=== PATIENT | male | born 1960 | race Caucasian/White ===

== ENCOUNTER 2024-07-09 16:41 | Emergency (ER) | payer MEDICARE, SELFPAY ==
--- NOTE | ~2024-07-09 | XR_ITS ---
CHEST RADIOGRAPH CLINICAL HISTORY: AMS . COMPARISON: 02/19/2018 TECHNIQUE: Single portable view of the chest. FINDINGS The cardiomediastinal silhouette is unremarkable. Coarse interstitial lung markings, unchanged from 2018, chronic in appearance. The lungs are otherwise clear. IMPRESSION: No focal infiltrate or effusion. Reviewed, dictated and finalized at location A. VENEER TAPER
--- NOTE | ~2024-07-09 | CT_ITS ---
Clinical Indication: Syncope, hemoptysis CT Scan of the Chest with Contrast: Technique: Contiguous sections were acquired throughout the chest after intravenous administration of 100 cc of Omnipaque 350. Dose reduction technique was used on this scan by utilizing automated expos ure control and iterative reconstruction technique. The dose-length product (DLP) was 317.81 mGy-cm. Findings: There is no evidence of any significant mediastinal, hilar or axillary lymphadenopathy. Small calcifi ed hilar lymph nodes are present in the right side. There is no filling defect in the pulmonary arter ial tree to suggest pulmonary embolus. There is no evidence of aortic dissection or aneurysm. There is no evidence of pleural or pericardial effusion. Biapical pulmonary scarring present. No suspicious pulmonary nodule or other consolidation. Images through the upper abdomen reveal no abnormalities. Impression: No evidence of pulmonary embolus, aortic dissection, or aortic aneurysm. Biapical scarring, otherwise clear lungs. Reviewed, dictated and finalized at [facility]. [employer]ITTER SUPERVISOR Impression: No evidence of pulmonary embolus, aortic dissection, or aortic aneurysm. Biapical scarring, otherwise clear lungs.
--- NOTE | ~2024-07-09 | CT_ITS ---
History: Altered mental status, dizzy, blurry vision PROCEDURE: CT head without contrast. COMPARISON: 02/19/2018 TECHNIQUE: Axial imaging of the head performed from the skull base to the vertex without IV contrast. Sagittal a nd coronal reformations obtained. DLP: 681 mGy-cm FINDINGS: The ventricles are normal in size, shape and position. There is no mass, mass effect or midline shift. There is no abnormal extra-axial fluid collection or intracranial hemorrhage. Air-fluid levels within the bilateral maxillary sinuses. Retention cyst within the left frontal sinus. Remaining paranasal sinuses are unremarkable. The mastoid air cells are well aerated. No acute displaced fractures within the overlying cranium. Impression: No acute intracranial hemorrhage or suspicious mass effect. Inflammatory sinus disease. Reviewed, dictated and finalized at location A. BOXING INSTRUCTOR Impression: No acute intracranial hemorrhage or suspicious mass effect. Inflammatory sinus disease.
[2024-07-09 16:44] VITALS: BP 120/73; PULSE 60; RESP 17; TEMP 36.1; O2SAT 96
--- NOTE | 2024-07-09 16:54 | ECG_ITS ---
Test Date: 2024-07-09 17:10:04 Measurements Intervals [place] Rate: 59 P: 83 CT: 204 QRS: 79 QRSD: 96 T: 72 QT: 463 QTc: 461 Interpretive Statements SINUS BRADYCARDIA BASELINE ARTIFACT- I, II, III, AVR, AVL, AVF, V1-V2 BORDERLINE ECG No previous ECG available for comparison Electronically Signed On 07-09-2024 19:04:39 [employer] FINANCE OFFICER by Matthew Krishnan D.O.
--- NOTE | 2024-07-09 16:55 | ED.DIZZY ---
HPI - Dizziness General Chief Complaint: Dizziness <Angie Dumont PA-C - Last Filed: 07/09/24 16:56> Stated Complaint: dizziness <Angie Dumont PA-C - Last Filed: 07/09/24 16:56> Time Seen by Provider: 07/09/24 23:45 <Angie Dumont PA-C - Last Filed: 07/09/24 16:56> Focused HPI: 64-year-old male presents to emergency department via EMS from home for altered mental status. Per family the patient was resting on the couch for several hours today which is abnormal for him, also had an episode of urinary incontinence which is abnormal for him. States he is not acting like himself. the patient states he just feels sick. He reports some dizziness and nausea but is unable to focalize any other complaints. Denies headache, chest pain or shortness of breath, cough or congestion, diarrhea, abdominal pain. Did have an episode of nausea and vomiting. No fevers. GENERAL: Well-appearing, well-nourished, and in no acute distress. vomit to the from the patient's shirt HEAD: Normocephalic, atraumatic. CHEST: Clear to auscultation. ?No respiratory distress. HEART: Regular rate and rhythm.? NEURO: ?Alert and oriented x3. Moving all extremities spontaneously Patient screened in triage and initial orders placed.? ?Additional care and disposition to be based upon?diagnostic testing and treatment. <Angie Dumont PA-C - Last Filed: 07/09/24 16:56> Focused HPI: 64-year-old male presents to emergency department via EMS from home for possible syncopal episode. The patient remembers cooking chicken and then his family member found him on the ground by the couch. States he was not acting like himself. The patient states he just feels sick. He reports some dizziness and nausea but is unable to focalize any other complaints. Reports he coughed up some blood on the way here. Denies headache, chest pain or shortness of breath, cough or congestion, diarrhea, abdominal pain. Did have an episode of nausea and vomiting. No fevers. GENERAL: Well-appearing, well-nourished, and in no acute distress. vomit to the from the patient's shirt HEAD: Normocephalic, atraumatic. CHEST: Clear to auscultation. ?No respiratory distress. HEART: Regular rate and rhythm.? NEURO: ?Alert and oriented x3. Moving all extremities spontaneously Patient screened in triage and initial orders placed.? ?Additional care and disposition to be based upon?diagnostic testing and treatment. <Mare Aldridge PA-C - Last Filed: 07/10/24 03:17> Related Data Allergies/Adverse Reactions: Allergies Allergy/AdvReac Type Severity Reaction Status Date / Time salicylic acid (From P and S Allergy Hives Verified 07/10/24 00:54 (salicylic acid)) <Angie Dumont PA-C - Last Filed: 07/09/24 16:56> Review of Systems Review of Systems: CONSTITUTIONAL: Denies fever CARDIOVASCULAR: Denies chest pain, or edema. RESPIRATORY: Denies dyspnea. GASTROINTESTINAL: Denies abdominal pain, nausea, vomiting NEUROLOGIC: Denies headache, numbness, or weakness. <Mare Aldridge PA-C - Last Filed: 07/10/24 03:17> All systems reviewed & are unremarkable except as noted in HPI and below <Mare Aldridge PA-C - Last Filed: 07/10/24 03:17> [facility] Past Medical History Medical History: Medical History (Updated 07/10/24 @ 03:02 by Mare Aldridge PA-C) No active medical problems <Anige Dumont PA-C - Last Filed: 07/09/24 16:56> Social History Social History: Social History (Updated 07/10/24 @ 00:35 by Mare Aldridge PA-C) Substance use: never <Angie Dumont PA-C - Last Filed: 07/09/24 16:56> Exam Narrative: GENERAL: Well-appearing, well-nourished, and in no acute distress. HEAD: Normocephalic, atraumatic. EYES: PERRLA and EOMI. ENT: Nares clear, no rhinorrhea or epistaxis. Mucous membranes moist. Oropharynx without tonsillar hypertrophy exudate or other lesions. Bilateral TMs pearly frances non-bulging NECK: Supple. No adenopathy or masses. CHEST: Clear to auscultation. No respiratory distress. No wheezes rales or rhonchi HEART: Regular rate and rhythm. No murmur heard. Normal peripheral pulses. ABDOMEN: Soft, nontender, nondistended, normal active bowel sounds. EXTREMITIES: Normal range of motion. No edema. Strength equal in bilateral upper and lower extremities (5/5) SKIN: Warm, dry, no rash. NEURO: No focal deficits. Alert and oriented x3. CN II-XII grossly intact PSYCH: Normal mood and affect <Mare Aldridge PA-C - Last Filed: 07/10/24 03:17> Course Course Emergency Course: patient and family updated on workup and agree with plan of care <ANTONETTE Callaway Last Filed: 07/10/24 03:17> Vital Signs Vital signs: Vital Signs Temperature 97 F L 07/09/24 16:44 Pulse Rate 60 07/09/24 16:44 Respiratory Rate 17 07/09/24 16:44 Blood Pressure 120/73 07/09/24 16:44 Pulse Oximetry 96 07/09/24 16:44 Oxygen Delivery Room Air 07/09/24 16:44 Temperature 97 F L 07/09/24 16:44 Pulse Rate 70 07/10/24 00:55 Respiratory Rate 15 07/10/24 00:55 Blood Pressure 106/76 07/10/24 00:55 Pulse Oximetry 99 07/10/24 00:55 Oxygen Delivery Room Air 07/09/24 16:44 <Angie Dumont PA-C - Last Filed: 07/09/24 16:56> Vital Signs Temperature 97 F L 07/09/24 16:44 Pulse Rate 60 07/09/24 16:44 Respiratory Rate 17 07/09/24 16:44 Blood Pressure 120/73 07/09/24 16:44 Pulse Oximetry 96 07/09/24 16:44 Oxygen Delivery Room Air 07/09/24 16:44 Temperature 97 F L 07/09/24 16:44 Pulse Rate 70 07/10/24 00:55 Respiratory Rate 15 07/10/24 00:55 Blood Pressure 106/76 07/10/24 00:55 Pulse Oximetry 99 07/10/24 00:55 Oxygen Delivery Room Air 07/09/24 16:44 <ANTONETTE Callaway Last Filed: 07/10/24 03:17> MDM - Dizziness MDM Narrative Medical decision making narrative: Patient presents to the ER for an episode of alteration in awareness. His son found him by the couch reports he was not responding appropriately. Upon arrival to the ER, patient is alert and oriented. Neurologically intact. His vitals are stable. CBC with leukocytosis to 14.6. Hemoglobin is normal. Metabolic panel without concerning findings. EKG without concerning changes and baseline troponin is negative. Urine shows some evidence of dehydration. Drug screen positive for cannabinoids. Influenza, RSV and COVID screens are negative. Alcohol level is negative. CT brain is without acute intracranial abnormality. Shows inflammatory sinus disease. CTA chest PE study obtained due to patient reporting hemoptysis. No evidence for PE or acute cardiopulmonary abnormality. patient and family updated on workup and agree with plan of care. Instructed to have close follow-up with his primary provider. They were given warnings to return to the ER <Mare Aldridge PA-C - Last Filed: 07/10/24 03:17> Differential Diagnosis Differential diagnosis: Likely adverse reaction to drug, benign paroxysmal positional vertigo, orthostatic hypotension and other (dehydration, electrolyte derangement, syncope, PE, infection) <Mare Aldridge PA-C - Last Filed: 07/10/24 03:17> Lab Data Attestation: I reviewed the patient's lab results. <Mare Aldridge PA-C - Last Filed: 07/10/24 03:17> Result diagrams: 07/09/24 17:11 07/09/24 17:11 <Angie Dumont PA-C - Last Filed: 07/09/24 16:56> Labs: Lab Results 07/09/24 07/10/24 07/10/24 Range/Units 17:11 00:54 01:47 WBC 14.6 H (4.5-10.0) K/mm3 RBC 4.33 L (4.6-6.20) M/mm3 Hgb 14.2 (14.0-18.0) g/dL Hct 42.5 (42.0-52.0) % MCV 98.2 (80-100) fl MCH 32.8 (26-34) pg MCHC 33.4 (32-36) g/dl RDW 12.6 (11.5-14.5) % Plt Count 206 (150-375) k/mm3 MPV 9.6 (7.4-10.4) fl Immature Gran % (Auto) Not Reportable Neut % (Auto) Not Reportable Lymph % (Auto) Not Reportable [place] % (Auto) Not Reportable Eos % (Auto) Not Reportable Baso % (Auto) Not Reportable Lymph # (Auto) Not Reportable [place] # (Auto) Not Reportable Eos # (Auto) Not Reportable Baso # (Auto) Not Reportable Abs Immat Gran (auto) Not Reportable Absolute Neuts (auto) Not Reportable Absolute Nucleated RBC Not Reportable Total Counted 100 Neutrophils % (Manual) 62 (46-73) % Band Neutrophils % 1 (0-6) % Lymphocytes % (Manual) 24.0 (18-44) % Monocytes % (Manual) 11 H (3-9) % Eosinophils % (Manual) 2 (0-4) % Nucleated RBC % Not Reportable Abs Neuts (Manual) 9.19 H (1.3-6.7) K/mm3 Abs Lymphs (Manual) 3.50 (1.1-4.5) K/mm3 Abs Monocytes (Manual) 1.60 H (0.1-0.90) K/mm3 Absolute Eos (Manual) 0.29 (0.02-0.50) K/mm3 Platelet Estimate Adequate (Adequate) Clumped Platelets Present % Immature Plt Fraction 2.1 (0.9-11.2) % Schistocytes None seen PT 13.2 (11.1-14.7) Seconds INR 1.0 APTT 20.0 L (22.3-36.8) Seconds Sodium 139 (137-145) mmol/L Potassium 3.6 (3.4-5.0) mmol/L Chloride 103 (98-107) mmol/L Carbon Dioxide 24 (22-30) mmol/L Anion Gap 12 (4-12) mmol/L BUN 18 (9-20) mg/dL Creatinine 0.73 (0.7-1.3) mg/dL Estim Creat Clear Calc 89 ml/min Estimated GFR > 60 (59 - ) Glucose 151 H (65-110) mg/dL Calcium 9.3 (8.4-10.2) mg/dL Total Bilirubin 0.6 (0.2-1.3) mg/dL AST 22 (17-59) U/L ALT 16 (6-50) U/L Alkaline Phosphatase 63 (38-126) U/L Total Creatine Kinase 72 (55-170) U/L Troponin I < 0.012 (0.000-0.034) ng/mL Total Protein 7.0 (6.3-8.2) g/dL Albumin 4.3 (3.5-5.1) g/dL TSH 2.870 (0.465-4.680) uIU/mL Urine Color Yellow (Yellow) Urine Appearance Clear (Clear) Urine pH 5.5 (5.0-9.0) Ur Specific Section 1.036 H (1.001-1.035) Urine Protein Trace (Negative) mg/dL Urine Glucose (UA) Negative (Negative) mg/dL Urine Ketones Trace H (Negative) mg/dL Ur Blood (Man) Negative (Negative) Urine Nitrate Negative (Negative) Urine Bilirubin Negative (Negative) Urine Urobilinogen 0.2 (<2.0) mg/dL Leukocyte Esterase Rfl Negative (Negative) ELIANA/UL Urine RBC 0-2 (0-2) /hpf Urine WBC 0-5 (0-3) /hpf Ur Squamous Epith Cells None seen (Few) /hpf Urine Bacteria None seen /hpf Urine Casts 0-2 Urine Opiates Screen Negative (Negative) Urine Methadone Screen Negative (Negative) Ur Barbiturates Screen Negative (Negative) Ur Phencyclidine Scrn Negative (Negative) Ur Amphetamine Screen Negative (Negative) U Benzodiazepines Scrn Negative (Negative) Urine Cocaine Screen Negative (Negative) U Cannabinoids Screen Positive A (Negative) Ethyl Alcohol < 10 (<10) mg/dL Influenza A (RT-PCR) Negative (Negative) Influenza B (RT-PCR) Negative (Negative) RSV (RT-PCR) Negative (Negative) SARS-CoV-2 RNA (RT-PCR) Negative (Negative) <Angie Dumont PA-C - Last Filed: 07/09/24 16:56> Lab Results 07/09/24 07/10/24 07/10/24 Range/Units 17:11 00:54 01:47 WBC 14.6 H (4.5-10.0) K/mm3 RBC 4.33 L (4.6-6.20) M/mm3 Hgb 14.2 (14.0-18.0) g/dL Hct 42.5 (42.0-52.0) % MCV 98.2 (80-100) fl MCH 32.8 (26-34) pg MCHC 33.4 (32-36) g/dl RDW 12.6 (11.5-14.5) % Plt Count 206 (150-375) k/mm3 MPV 9.6 (7.4-10.4) fl Immature Gran % (Auto) Not Reportable Neut % (Auto) Not Reportable Lymph % (Auto) Not Reportable [place] % (Auto) Not Reportable Eos % (Auto) Not Reportable Baso % (Auto) Not Reportable Lymph # (Auto) Not Reportable [place] # (Auto) Not Reportable Eos # (Auto) Not Reportable Baso # (Auto) Not Reportable Abs Immat Gran (auto) Not Reportable Absolute Neuts (auto) Not Reportable Absolute Nucleated RBC Not Reportable Total Counted 100 Neutrophils % (Manual) 62 (46-73) % Band Neutrophils % 1 (0-6) % Lymphocytes % (Manual) 24.0 (18-44) % Monocytes % (Manual) 11 H (3-9) % Eosinophils % (Manual) 2 (0-4) % Nucleated RBC % Not Reportable Abs Neuts (Manual) 9.19 H (1.3-6.7) K/mm3 Abs Lymphs (Manual) 3.50 (1.1-4.5) K/mm3 Abs Monocytes (Manual) 1.60 H (0.1-0.90) K/mm3 Absolute Eos (Manual) 0.29 (0.02-0.50) K/mm3 Platelet Estimate Adequate (Adequate) Clumped Platelets Present % Immature Plt Fraction 2.1 (0.9-11.2) % Schistocytes None seen PT 13.2 (11.1-14.7) Seconds INR 1.0 APTT 20.0 L (22.3-36.8) Seconds Sodium 139 (137-145) mmol/L Potassium 3.6 (3.4-5.0) mmol/L Chloride 103 (98-107) mmol/L Carbon Dioxide 24 (22-30) mmol/L Anion Gap 12 (4-12) mmol/L BUN 18 (9-20) mg/dL Creatinine 0.73 (0.7-1.3) mg/dL Estim Creat Clear Calc 89 ml/min Estimated GFR > 60 (59 - ) Glucose 151 H (65-110) mg/dL Calcium 9.3 (8.4-10.2) mg/dL Total Bilirubin 0.6 (0.2-1.3) mg/dL AST 22 (17-59) U/L ALT 16 (6-50) U/L Alkaline Phosphatase 63 (38-126) U/L Total Creatine Kinase 72 (55-170) U/L Troponin I < 0.012 (0.000-0.034) ng/mL Total Protein 7.0 (6.3-8.2) g/dL Albumin 4.3 (3.5-5.1) g/dL TSH 2.870 (0.465-4.680) uIU/mL Urine Color Yellow (Yellow) Urine Appearance Clear (Clear) Urine pH 5.5 (5.0-9.0) Ur Specific Section 1.036 H (1.001-1.035) Urine Protein Trace (Negative) mg/dL Urine Glucose (UA) Negative (Negative) mg/dL Urine Ketones Trace H (Negative) mg/dL Ur Blood (Man) Negative (Negative) Urine Nitrate Negative (Negative) Urine Bilirubin Negative (Negative) Urine Urobilinogen 0.2 (<2.0) mg/dL Leukocyte Esterase Rfl Negative (Negative) ELIANA/UL Urine RBC 0-2 (0-2) /hpf Urine WBC 0-5 (0-3) /hpf Ur Squamous Epith Cells None seen (Few) /hpf Urine Bacteria None seen /hpf Urine Casts 0-2 Urine Opiates Screen Negative (Negative) Urine Methadone Screen Negative (Negative) Ur Barbiturates Screen Negative (Negative) Ur Phencyclidine Scrn Negative (Negative) Ur Amphetamine Screen Negative (Negative) U Benzodiazepines Scrn Negative (Negative) Urine Cocaine Screen Negative (Negative) U Cannabinoids Screen Positive A (Negative) Ethyl Alcohol < 10 (<10) mg/dL Influenza A (RT-PCR) Negative (Negative) Influenza B (RT-PCR) Negative (Negative) RSV (RT-PCR) Negative (Negative) SARS-CoV-2 RNA (RT-PCR) Negative (Negative) <Mare Aldridge PA-C - Last Filed: 07/10/24 03:17> Imaging Data Radiologist's impression: ITS Impressions Chest X-Ray 07/09/24 17:06 IMPRESSION: No focal infiltrate or effusion. Head CT 07/09/24 17:31 Impression: No acute intracranial hemorrhage or suspicious mass effect. Inflammatory sinus disease. CTA chest PE: No acute pulmonary embolism <Mare Aldridge PA-C - Last Filed: 07/10/24 03:17> ECG Data EKG #1: ECG completion date: 07/10/24 <ANTONETTE Callaway Last Filed: 07/10/24 03:17> EKG Interpretation: bradycardia, sinus rhythm, no ST changes and normal QT <ANTONETTE Callaway Last Filed: 07/10/24 03:17> Critical Care Time Critical Care Time Critical Care Time: No <ANTONETTE Callaway Last Filed: 07/10/24 03:17> Discharge Plan Discharge Clinical Impression: Altered awareness, transient Acute sinusitis Qualifiers: Sinusitis location: maxillary Recurrence: not specified as recurrent Qualified Code(s): J01.00 - Acute maxillary sinusitis, unspecified <ANTONETTE Pope Last Filed: 07/09/24 16:56> Patient Disposition: Home, Self-Care <ANTONETTE Pope Last Filed: 07/09/24 16:56> Condition: Improved <ANTONETTE Pope Last Filed: 07/09/24 16:56> Instructions: Antibiotic Form, Sinusitis (ED), Lightheadedness (ED) <ANTONETTE Pope Last Filed: 07/09/24 16:56> Additional Instructions: Return to the emergency department if you experience fever, chest pain, shortness of breath, abdominal pain with nausea and vomiting, weakness, numbness/tingling, or any other symptoms that are concerning to you. Take oral antibiotic as prescribed Follow up with your primary care doctor <ANTONETTE Pope Last Filed: 07/09/24 16:56> Patient Language: Serbian <Angie Dumont PA-C - Last Filed: 07/09/24 16:56> Prescriptions: New cefpodoxime 100 mg/5 mL suspension for reconstitution 100 mg PO BID 7 Days Qty: 70 0RF <Angie Dumont PA-C - Last Filed: 07/09/24 16:56> Follow-up/Referrals: PHYSICIAN NOT ON STAFF,NONSTAFF [Non-Staff] - <Angie Dumont PA-C - Last Filed: 07/09/24 16:56>
[2024-07-09 17:27] LABS: Hematocrit 42.5 % (42.0-52.0); Hemoglobin 14.2 g/dL (14.0-18.0); Immature Platelet Fraction Pct 2.1 % (0.9-11.2); Mean Corpuscular HGB Conc 33.4 g/dl (32-36); Mean Corpuscular Hemoglobin 32.8 pg (26-34); Mean Corpuscular Volume 98.2 fl (80-100); Mean Platelet Volume 9.6 fl (7.4-10.4); Platelet Count Result 206 k/mm3 (150-375); Red Blood Count 4.33 M/mm3 (4.6-6.20); Red Cell Distribution Width 12.6 % (11.5-14.5); White Blood Count 14.6 K/mm3 (4.5-10.0)
[2024-07-09 17:42] LABS: Prothrombin Time 13.2 Seconds (11.1-14.7)
[2024-07-09 17:55] LABS: Alanine Aminotransferase 16 U/L (6-50); Albumin Level 4.3 g/dL (3.5-5.1); Alkaline Phosphatase 63 U/L (38-126); Anion Gap 12 mmol/L (4-12); Aspartate Amino Transferase 22 U/L (17-59); Bilirubin,Total 0.6 mg/dL (0.2-1.3); Blood Urea Nitrogen 18 mg/dL (9-20); Calcium 9.3 mg/dL (8.4-10.2); Carbon Dioxide 24 mmol/L (22-30); Chloride 103 mmol/L (98-107); Creatine Kinase 72 U/L (55-170); Estimated CRCL calculation 89 ml/min; Estimated Glomerular Filt Rate > 60; Glucose 151 mg/dL (65-110); Potassium 3.6 mmol/L (3.4-5.0); Sodium 139 mmol/L (137-145)
[2024-07-09 17:59] LABS: Band Neutrophils Percent 1 % (0-6); Eosinophils Absolute Manual 0.29 K/mm3 (0.02-0.50); Eosinophils Percent Manual 2 % (0-4); Monocytes Percent Manual 11 % (3-9); Neutrophils Absolute Manual 9.19 K/mm3 (1.3-6.7); Neutrophils Percent Manual 62 % (46-73); Platelet Clumps Present; Platelet Estimate Adequate (Adequate); Schistocytes None Seen; Total Cells Counted 100
[2024-07-09 18:03] LABS: Influenza A QL RT-PCR Negative (Negative); Influenza B QL RT-PCR Negative (Negative); RSV RNA, RT-PCR Negative (Negative); SARS-CoV-2 RNA PCR Negative (Negative)
[2024-07-09 18:29] LABS: Troponin I < 0.012 ng/mL (0.000-0.034)
--- OUTSIDE RECORDS SUMMARY | 2024-07-10 00:11 | XMS_ITS | Clinical Summary ---
Author Organization [facility] Address [address], [address] [address] Phone Care Team Providers Care Superannuation Funds Manager Name Role Phone Kingston Montes De Oca DO Primary Care Provider [phone] Social History Tobacco Use Types Packs/Day Years Used Date Smoking Tobacco: Never Assessed Sex and Gender Information Value Date Recorded Sex Assigned at Not on file Legal Sex Male 10:54 PM CDT Gender Identity Not on file Sexual Orientation Not on file Plan of Treatment Health Maintenance Due Date Last Done Comments Hepatitis C Virus (HCV) Screening 1960 TdaP Immunization 1960 Cologuard 2009 Immunochemical Fecal Occult Blood 2009 Pneumococcal Immunization (5 0+ years) (1 of 1 - PCV) 2009 Zoster Immunization (1 of 2) 2009 PSA Discussion 2014 Influenza Immunization (#1) 2024 SARS-COV-2 Immunization ( - season) 2024 Colonoscopy 04/27/2028 04/27/2018 Colorectal Cancer Screening 04/27/2028 Respiratory Syncytial Virus (RSV) Immunization (Adult) (1 - 1-dose 75+ series) 2034 04/27/2018 Hepatitis B Immunization Aged Out No longer eligible based on patient's age to complete this topic Meningococcal Immunization (ACWY) Aged Out No longer eligible based on patient's age to complete this topic Pneumococcal Immunization Combined Aged Out No longer eligible based on patient's age to complete this topic Rotavirus Immunization Aged Out No lo nger eligible based on patient's age to complete this topic Procedures Procedure Name Priority Date/Time Associated Diagnosis Comments COLONOSCOPY Routine 04/27/2018 from Last 3 Months or Most Recently Relevant to Health Maintenance Results * COLONOSCOPY (04/27/2018) Kingston Montes De Oca DO PROCEDURE/MINOR SURGICAL OR DERABLES Final Result from Last 3 Months or Most Recently Relevant to Health Maintenance Insurance MEDICARE [facility] Care Teams Superannuation Funds Manager Relationship Specialty Start Date End Date Kingston Montes De Oca DO [address] [place] [address] PCP - General Internal Medicine 07/18/17
--- OUTSIDE RECORDS SUMMARY | 2024-07-10 00:11 | XMS_ITS | Referral Summary ---
Author Organization [facility] Address [address] [place] [id number] Care Team Providers Care Tearer Name Role Phone Kingston Montes De Oca MD Primary Care Provider [phone] Kingston Montes De Oca MD Unavailable [phone] Allergies Active Allergy Reactions Criticality Noted Date Comments Morphine Nausea only Low 02/20/2018 Penicillins Anaphylaxis High 02/20/2018 Medications aspirin 325 mg EC tabletIndication s:Deep Vein Thrombosis Prevention Take 1 tablet (325 mg total) by mouth 2 (two) times a day for 14 days. 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 02/20/2018 Chronic low back pain 02/20/2018 Acute pain due to trauma 02/20/2018 Social History Tobacco Use Types Packs/Day Years Used Date Smoking Tobacco: Former Cigarettes 0.5 10 1 - 02/21/1988 Smokeless Tobacco: Never Tobacco Cessation:Counseling Given: Yes Comments:Pt has quit for 30 yrs Alcohol Use Standard Drinks/Week Comments No 0 (1 standard drink = 0.6 oz pur e alcohol) Sex and Gender Information Value Date Recorded Sex Assigned at Not on file Legal Sex Male 9:25 AM CDT Gender Identity Not on file Sexual Orientation Not on file 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 Not on file Not on fi le Last Filed Vital Signs Vital Sign Reading Time Taken Comments Blood Pressure 139/79 02/22/2018 4:40 PM CDT Pulse 93 02/22/2018 4:40 PM CDT Temperature 37.3 C (99.1 F) 02/22/2018 4:40 PM CDT Respiratory Rate 16 02/22/2018 4:40 PM CDT Oxygen Saturation 99% 02/22/2018 4:40 PM CDT Inhaled Oxygen Concentration - - Weight 69.9 kg (154 lb) 09/19/2018 11:03 AM CDT Height 198.1 cm (6' 6 ) 09/19/2018 11:03 AM CDT Body Mass Index 17.8 09/19/2018 11:03 AM CDT Plan of Treatment Not on file Medical Devices Implanted Type Area Propagation Manager Device Identifier Shelf Expiration Date Model / Serial / Lot [employer] [id number] Trilogy 6.5mm 35mm Self Tap Screw Bone - S0 - [id number] Implanted:Qty: 1 on 02/20/2018 by Hood Ramos MD at [facility] Screw Left: Hip [employer] [id number] 10/14/2027 [id number] / 0 / [id number] [employer] [id number] Trilogy 6.5mm 30mm Self Tap Acetabular Cortical Screw Bone - [id number] Implanted:Qty: 1 on 02/20/2018 by Hood Ramos MD at [facility] Screw Left: Hip [employer] [id number] 01/14/2028 [id number] / / [id number] [employer] [id number] 58mm Limit Hole Color Coded Hip G Hemisphere Offset Shell - S0 - [id number] Implanted:Qty: 1 on 02/20/2018 by Hood Ramos MD at [facility] Left: Hip [employer] [id number] 12/20/2027 [id number] / 0 / [id number] [employer] [id number] Cable-Ready 1.8mm 635cm Cerclage Crimp Trochanter Cable - S0 - [id number] Implanted:Qty: 1 on 02/20/2018 by Hood Ramos MD at [facility] Left: Hip [employer] [id number] 12/14/2027 [id number] / 0 / [id number] [employer] [id number] Almazan Sl Revision 21mm 225mm Distal Fill Hip 135d 12/14 Stem - S0 - [id number] Implanted:Qty: 1 on 02/20/2018 by Hood Ramos MD at [facility] Left: Hip [employer] [id number] 04/14/2018 [id number] / 0 / [id number] [employer] [id number] Trilogy 6.5mm 20mm Self Tap Screw Bone - [id number] Implanted:Qty: 1 on 02/20/2018 by Hood Ramos MD at [facility] Left: Hip [employer] [id number] 10/14/2027 [id number] / / [id number] Acetabular Liner Implanted:Qty: 1 on 02/20/2018 by Hood Ramos MD at [facility] Left: Hip [employer] [id number] 10/16/2022 / / [id number] [employer] [id number] Versys Legacy 36mm Hip +10.5mm 12/14 Head Femoral Zimaloy Sterile - [id number] Implanted:Qty: 1 on 02/21/2018 by Hood Ramos MD at [facility] Left: Hip [employer] [id number] 12/14/2027 [id number] / / [id number] [place] [address] [facility] ACCESS Member Subscriber Plan / Payer (Ef fective 2011-Present) Name:Marcin Patino Relation to Subscriber:Spouse Name:ROOSEVELT CRANE Date of :1899 (Home) Address: [address] [place] [address] Payer ID:[id number] (NAIC) Type: ALLIANCE Address: [address] [place] [id number] MEDICARE MEDICARE [facility] ACCESS Member Subscriber Plan / Payer (Ef fective 2011-Present) Name:Marcin Patino Relation to Subscriber:Spouse Name:ROOSEVELT PATINO Subscriber ID:Not on file Date of :1962 (Home) Address: [address] [place] [address] Payer ID:[id number] (NAIC) Type:BC ALLIANCE Address: [address] [place] [id number] Advance Directives For more information, please contact: [phone] * Full Code (Latest Code Status on File) Date Activated Date Inactivated Comments 02/20/2018 3:46 PM 02/22/2018 9:55 PM Care Teams Tearer Relationship Specialty Start Date End Date Kingston Montes De Oca MD [address] [facility] [address] [place] [address] PCP - General 02/20/18 Kingston Montes De Oca MD [address] [place] [address] Internal Medicine 02/19/18
--- OUTSIDE RECORDS SUMMARY | 2024-07-10 00:11 | XMS_ITS | Clinical Summary ---
Author Organization [facility] Address [address] [place] [address] Care Team Providers Care Book Store Associate Name Role Phone Kingston Montes De Oca MD Primary Care Provider [phone] Kingston Montes De Oca MD Unavailable [phone] Allergies Active Allergy Reactions Criticality Noted Date [...] 02/20/2018 Acute pain due to trauma 02/20/2018 Surgical History Surgery Date Site/Laterality Comments NEUROPLASTY / TRANSPOSITION MEDIAN NERVE AT CARPAL TUNNEL BILATERAL GANGLION CYST EXCISION HIP SURGERY 03/02/[address] 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 Lumbago TBI (traumatic brain injury) ([facility]) 2010 DDD (degenerative disc disease), cervical Family History Medical History Relation Name Comments Cancer Father Diabetes Mother Stroke Mother Heart disease Son Relation Name Status Comments Father Mother Son Social History Tobacco Use Types Packs/Day Years [...] 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 on file Not on fi le Obstetrics History Last Filed Vital Signs Vital Sign Reading [...] on file Medical Devices Implanted Type Area Cop Winder Device Identifier Shelf Expiration Date Model / Serial / Lot [employer] [id number] Trilogy 6.5mm 35mm Self Tap Screw Bone - S0 - [id number] Implanted:Qty: 1 on 02/20/2018 by Hood Long MD at [facility] Screw Left: Hip [employer] [id number] 10/14/2027 [id number] / 0 / [id number] [employer] [id number] Trilogy 6.5mm 30mm Self Tap Acetabular Cortical Screw Bone - [id number] Implanted:Qty: 1 on 02/20/2018 by Hood Long MD at [facility] Screw Left: Hip [employer] [id number] 01/14/2028 [id number] / / [id number] [employer] [id number] 58mm Limit Hole Color Coded Hip G Hemisphere Offset Shell - S0 - [id number] Implanted:Qty: 1 on 02/20/2018 by Hood Long MD at [facility] Left: Hip [employer] [id number] 12/20/2027 [id number] / 0 / [id number] [employer] [id number] Cable-Ready 1.8mm 635cm Cerclage Crimp Trochanter Cable - S0 - [id number] Implanted:Qty: 1 on 02/20/2018 by Hood Long MD at [facility] Left: Hip [employer] [id number] 12/14/2027 [id number] / 0 / [id number] [employer] [id number] Almazan Sl Revision 21mm 225mm Distal Fill Hip 135d 12/14 Stem - S0 - [id number] Implanted:Qty: 1 on 02/20/2018 by Hood Long MD at [facility] Left: Hip [employer] [id number] 04/14/2018 [id number] / 0 / [id number] [employer] [id number] Trilogy 6.5mm 20mm Self Tap Screw Bone - [id number] Implanted:Qty: 1 on 02/20/2018 by Hood Long MD at [facility] Left: Hip [employer] [id number] 10/14/2027 [id number] / / [id number] Acetabular Liner Implanted:Qty: 1 on 02/20/2018 by Hood Long MD at [facility] Left: Hip [employer] [id number] 10/16/2022 / / [id number] [employer] [id number] Versys Legacy 36mm Hip +10.5mm 12/14 Head Femoral Zimaloy Sterile - [id number] Implanted:Qty: 1 on 02/21/2018 by Hood Long MD at [facility] Left: Hip [employer] [id number] 12/14/2027 [id number] / / [id number] Insurance [facility] MEDICARE MEDICARE [facility] ACCESS Advance Directives For more information, please contact: [phone] * Full Code (Latest Code Status on File) Date Activated Date Inactivated Comments 02/20/2018 3:46 PM 02/22/2018 9:55 PM Care Teams Book Store Associate Relationship Specialty Start Date End Date Kingston Montes De Oca MD [address] [facility] [address] [place] [address] PCP - General 02/20/18 Kingston Montes De Oca MD [address] [facility] [address] [place] [address] Internal Medicine 02/19/18
[2024-07-10] MEDS: SODIUM CHLORIDE 0.9% IV 1,000 ML 999 ML IV CONT (00:53)
[2024-07-10 00:55] VITALS: BP 106/76; PULSE 70; RESP 15; O2SAT 99
[2024-07-10 01:18] LABS: Ethanol < 10 mg/dL (<10)
[2024-07-10 02:02] LABS: Add Urine Microscopic? YES; Appearance Urine Clear (Clear); Bacteria Urine None Seen /hpf; Bilirubin Urine Negative (Negative); Blood Urine Negative (Negative); Color Urine Yellow (Yellow); Glucose Urine UA Negative (Negative); Ketones Urine Trace mg/dL (Negative); Leukocyte Esterase Ur Negative LEU/UL (Negative); Nitrate Urine Negative (Negative); Non Pathogenic Casts 0-2; Protein Urine Trace mg/dL (Negative); RBC Urine 0-2 /hpf (0-2); Specific Grav Ur 1.036 (1.001-1.035); Squamous Epithelial Cell Urine None Seen /hpf (Few); Urobilinogen Urine 0.2 mg/dL (<2.0); WBC Urine 0-5 /hpf (0-3); pH Urine 5.5 (5.0-9.0)
[2024-07-10 02:13] LABS: Amphetamine Screen Urine Negative (Negative); Barbiturate Screen Urine Negative (Negative); Benzodiazepines Screen Urine Negative (Negative); Cannabinoid Screen Urine Positive (Negative); Cocaine Screen Urine Negative (Negative); Methadone Screen Urine Negative (Negative); Opiate Screen Urine Negative (Negative); Phencyclidine Screen Urine Negative (Negative)
[2024-07-10] MEDS: ACETAMINOPHEN ELIXIR 325 MG/10.15 ML UDC 1000 MG PO (03:26)
[2024-07-10 03:58] VITALS: BP 128/78; PULSE 74; RESP 15; O2SAT 100
== END 2024-07-10 04:00 | disposition home or self-care (01) ==
PROVIDERS: Physician Assistant; Emergency Provider Physician Assistant; PCP Physician Assistant
DX: R40.4 Transient alteration of awareness (principal); J01.00 Acute maxillary sinusitis, unspecified; R04.2 Hemoptysis; Z20.822 Contact with and (suspected) exposure to COVID-19
CPT/HCPCS: 36415; 70450; 71045; 71275; 80053; 80307; 81001; 82077; 82550; 84443; 84484; 85025; 85055; 85610; 85730; 87637; 93005; 96360; 99284; A9270; J7030; Q9967